=== PATIENT | female | born 1975 | race Caucasian/White ===

== ENCOUNTER → 2018-12-28 | Outpatient (CLI) | payer OTHER ==
[~2018-12-28] VITALS: Ht 168.9 cm; Wt 68.0 kg
[~2018-12-28] MED LIST: FLONASEALLERGY NS
[2018-12-28 15:44] VITALS: BP 106/60; PULSE 72
== END ==
LOC: LIGHT 15:31
DX: J45.909 Unspecified asthma, uncomplicated (principal); E66.3 Overweight; Z71.3 Dietary counseling and surveillance
CPT/HCPCS: G0463

== ENCOUNTER → 2019-01-11 | Outpatient (CLI) | payer OTHER | LOC: LIGHT 14:57 | DX: J45.909 Unspecified asthma, uncomplicated (principal); E66.3 Overweight; Z68.23 Body mass index [BMI] 23.0-23.9, adult; Z71.3 Dietary counseling and surveillance ==